=== PATIENT | female | born 1955 | race Hispanic/Latino ===

== ENCOUNTER 2018-05-12 00:45 | Emergency (ER) | payer MEDICAID, OTHER ==
[2018-05-12 01:01] VITALS: BMI 24.1
[2018-05-12 01:04] VITALS: BP 149/98; PULSE 94; RESP 18; TEMP 97.6; O2SAT 99
--- NOTE | 2018-05-12 02:07 | ED PDOC ---
HPI: Psych/Substance Abuse Time Seen by Provider: 05/12/18 01:02 Chief Complaint (Nursing): Alcohol Ingestion Chief Complaint (Provider): Alcohol Ingestion ED Caveat: Intoxicated History Per: Patient, EMS History/Exam Limitations: intoxication Modifying Factor(s): Alcohol Additional Complaint(s): 63 y/o female with history of hypertension brought in by EMS for alcohol intoxication. Patient is well known to provider for multiple visits to ED. Full HPI and ROS limited due to patient's intoxicated state. PMD: non provided Past Medical History Reviewed: Historical Data, Nursing Documentation, Vital Signs Vital Signs: Last Vital Signs Temp 97.6 F 05/12/18 01:01 Pulse 94 H 05/12/18 01:01 Resp 18 05/12/18 01:01 BP 149/98 H 05/12/18 01:01 Pulse Ox 99 05/12/18 01:01 - Medical History PMH: HTN - Family History Family History: States: Unknown Family Hx - Social History Alcohol: > 2 Drinks/Day - Immunization History Hx Tetanus Toxoid Vaccination: No Hx Influenza Vaccination: No Hx Pneumococcal Vaccination: No - Home Medications Home Medications: Ambulatory Orders Medication Instructions Recorded No Known Home Med 10/28/15 - Allergies Allergies/Adverse Reactions: Allergies Allergy/AdvReac Type Severity Reaction Status Date / Time No Known Allergies Allergy Verified 05/12/18 01:01 Review of Systems Review Of Systems: ROS cannot be obtained secondary to pt's inabilty to answer questions. Physical Exam - Reviewed Nursing Documentation Reviewed: Yes Vital Signs Reviewed: Yes - Physical Exam Appears: Positive for: No Acute Distress Head Exam: Positive for: ATRAUMATIC, NORMOCEPHALIC Skin: Positive for: Normal Color, Warm, Dry Eye Exam: Positive for: Normal appearance, EOMI, PERRL Neck: Positive for: Normal, Painless ROM, Supple Cardiovascular/Chest: Positive for: Regular Rate, Rhythm. Negative for: Murmur Respiratory: Positive for: Normal Breath Sounds. Negative for: Respiratory Distress Gastrointestinal/Abdominal: Positive for: Normal Exam, Soft. Negative for: Tenderness Back: Positive for: Normal Inspection. Negative for: L CVA Tenderness, R CVA Tenderness Extremity: Positive for: Normal ROM. Negative for: Pedal Edema, Deformity - ECG O2 Sat by Pulse Oximetry: 99 (RA) Pulse Ox Interpretation: Normal Medical Decision Making Medical Decision Making: Time: 128 Initial impression: 63 y/o female brought in for alcohol intoxication Initial plan: --Alcohol serum 0611 Upon reevaluation, patient is sober and stable for discharge. Diagnosis is alcohol intoxication. Scribe Attestation: Documented by Silke Taylor, acting as a scribe for Tomás Flannery MD. Provider Scribe Attestation: All medical record entries made by the Scribe were at my direction and personally dictated by me. I have reviewed the chart and agree that the record accurately reflects my personal performance of the history, physical exam, medical decision making, and the department course for this patient. I have also personally directed, reviewed, and agree with the discharge instructions and disposition. Disposition - Clinical Impression Clinical Impression: Alcohol abuse with intoxication - Patient ED Disposition Is Patient to be Admitted: No - Disposition Disposition: Routine/Home Disposition Time: 06:11 Condition: STABLE Instructions: Alcohol Use - When Is Drinking a Problem? Forms: [employer] (Latvian)
== END 2018-05-12 06:38 | disposition home or self-care (01) ==
LOC: H.ER 00:45
DX: F10.129 Alcohol abuse with intoxication, unspecified (principal); I10 Essential (primary) hypertension; Y90.8 Blood alcohol level of 240 mg/100 ml or more

== ENCOUNTER 2018-07-04 22:14 | Emergency (ER) | payer MEDICAID ==
[2018-07-04 22:14] VITALS: BMI 24.1
--- NOTE | 2018-07-04 22:59 | ED PDOC ---
HPI: Psych/Substance Abuse Time Seen by Provider: 07/04/18 22:26 Chief Complaint (Nursing): Alcohol Ingestion History Per: Patient, EMS Additional Complaint(s): As per EMS ambulance was called on patient as she was found outside sitting on bench. As per caller pt. was observed in the morning on the bench sleeping and later on in the evening pt. was still on the bench. EMS further reports that pt. had an empty large bottle of vodka adjacent to her. Pt. admits to drinking vodka today and offers no complaints at this time. Past Medical History Reviewed: Historical Data, Nursing Documentation, Vital Signs Vital Signs: Last Vital Signs Temp 98.1 F 07/04/18 22:27 Pulse 105 H 07/04/18 22:27 Resp 18 07/04/18 22:27 BP 158/98 H 07/04/18 22:27 Pulse Ox 99 07/04/18 22:27 - Medical History PMH: HTN - Surgical History Surgical History: No Surg Hx - Family History Family History: States: No Known Family Hx - Immunization History Hx Tetanus Toxoid Vaccination: No Hx Influenza Vaccination: No Hx Pneumococcal Vaccination: No - Home Medications Home Medications: Ambulatory Orders Medication Instructions Recorded No Known Home Med 10/28/15 - Allergies Allergies/Adverse Reactions: Allergies Allergy/AdvReac Type Severity Reaction Status Date / Time No Known Allergies Allergy Verified 07/04/18 22:27 Review of Systems ROS Statement: Except As Marked, All Systems Reviewed And Found Negative Physical Exam - Physical Exam Appears: Positive for: Well, Non-toxic, No Acute Distress Head Exam: Positive for: ATRAUMATIC, NORMAL INSPECTION, NORMOCEPHALIC Skin: Positive for: Normal Color, Warm. Negative for: Rash Eye Exam: Positive for: Normal appearance, PERRL Cardiovascular/Chest: Positive for: Regular Rate, Rhythm. Negative for: Tachycardia Respiratory: Positive for: Normal Breath Sounds. Negative for: Respiratory Distress Gastrointestinal/Abdominal: Positive for: Soft. Negative for: Tenderness Neurologic/Psych: Positive for: Alert, Oriented (x3), Other (Slurred speech, AOB). Negative for: Aphasia, Facial Droop - ECG O2 Sat by Pulse Oximetry: 99 - Progress ED Course And Treament: Labs ordered. Disposition - Clinical Impression Clinical Impression: Alcohol intoxication - Patient ED Disposition Is Patient to be Admitted: Transfer of Care (Signed out to Belle SPENCER pending labs and sobriety.) - Disposition Disposition Time: 00:00 Condition: FAIR
--- NOTE | 2018-07-04 23:56 | ED PDOC ---
- Laboratory Results Result Diagrams: 07/05/18 00:15 07/05/18 00:15 - ECG O2 Sat by Pulse Oximetry: 99 Medical Decision Making Medical Decision Making: Patient endorsed to me by KORI Conley pending clinical sobriety and blood work results. Serum ETOH: 270 @ 00:15 03:49am: re-evaluated, speaking in full sentences and coherently, states that she is having significant B/L foot pain that occurred overnight. Denies SI/HI. Exam shows diffuse calluses on B/L feet with white discoloration and mild erythema on B/L feet, no increased warmth or purulent drainage. Ibuprofen 600mg PO x 1 ordered. Patient referred to podiatry clinic as outpatient. Ambulating with steady gait and speaking coherently. Disposition - Clinical Impression Clinical Impression: Alcohol intoxication - POA Present On Arrival: None - Disposition Referrals: Podiatry Clinic [Outside] Oli Vasquez MD [Family Provider] - Disposition: Routine/Home Disposition Time: 05:31 Condition: STABLE Additional Instructions: F/u with podiatry for further evaluation of foot discomfort. Take Tylenol or Ibuprofen for pain. Prescriptions: Ibuprofen [Motrin Tab] 600 mg PO Q6 PRN 7 Days tab PRN Reason: Pain, Moderate (4-7) Instructions: Alcohol Abuse and Alcoholism (DC) Forms: [employer] (Kenyan) Print Language: YORUBA
[2018-07-05 00:51] LABS: BASO # 0.1 K/uL (0.0-0.2); BASO % 0.8 % (0.0-2.0); EOS # 0.1 K/uL (0.0-0.7); HEMOGLOBIN 14.3 g/dL (12.0-16.0); LYMPH # 3.2 K/uL (1.0-4.3); LYMPH % 47.8 % (20.0-40.0); MEAN CELL VOLUME 98.7 fl (81.0-99.0); MEAN CORPUSCULAR HEMOGLOBIN 33.1 pg (27.0-31.0); MEAN CORPUSCULAR HGB CONC 33.6 g/dL (33.0-37.0); MEAN PLATELET VOLUME 7.9 fl (7.2-11.7); MONO # 0.3 K/uL (0.0-0.8); MONO % 5.2 % (0.0-10.0); NEUT # 2.9 K/uL (1.8-7.0); NEUT % 44.2 % (50.0-75.0); NRBC % 0.1 % (0.0-0.0); RBC 4.32 Mil/uL (3.80-5.20); RED CELL DISTRIBUTION WIDTH 14.1 % (11.5-14.5); WHITE BLOOD COUNT 6.7 K/uL (4.8-10.8)
[2018-07-05 01:04] LABS: ALB/GLOB RATIO 1.2 (1.0-2.1); ALBUMIN 4.7 g/dL (3.5-5.0); ALT/SGPT 48 U/L (9-52); AST/SGOT 100 U/L (14-36); BLOOD UREA NITROGEN 15 mg/dl (7-17); GFR NON-AFRICAN AMERICAN > 60
[2018-07-05 06:27] VITALS: BP 149/93; PULSE 99; RESP 19; TEMP 98.3; O2SAT 97
== END 2018-07-05 06:00 | disposition home or self-care (01) ==
LOC: H.ER 22:14
DX: F10.129 Alcohol abuse with intoxication, unspecified (principal); I10 Essential (primary) hypertension

== ENCOUNTER 2018-10-04 01:00 | Emergency (ER) | payer MEDICAID ==
[2018-10-04 01:42] VITALS: BMI 23.6
[2018-10-04 01:44] VITALS: RESP 18; TEMP 98.3; O2SAT 98
[2018-10-04] MEDS ORDERED: Bacitracin/Neomycin/Polymyxin OPHT OINT OD STA (02:54)
--- NOTE | 2018-10-04 03:05 | ED PDOC ---
HPI: Eye Injury/Pain Time Seen by Provider: 10/04/18 01:40 Chief Complaint (Nursing): Eye Problem Chief Complaint (Provider): 3 days of right eye redness and drainage History Per: Patient History/Exam Limitations: no limitations Onset/Duration Of Symptoms: Days Current Symptoms Are (Timing): Still Present Quality: Dull Wears Contact Lens?: No Associated Symptoms: Pain, Discharge From Eye. denies: Decreased Vision Additional Complaint(s): PT reports mnild right eye discomfort and itchiness for 3 days, drainage x 2. No change in vision. Past Medical History Reviewed: Historical Data, Nursing Documentation, Vital Signs Vital Signs: Last Vital Signs Temp 98.3 F 10/04/18 01:41 Pulse 110 H 10/04/18 01:41 Resp 18 10/04/18 01:41 BP 167/93 H 10/04/18 01:41 Pulse Ox 98 10/04/18 01:41 Primary Care Provider: Procedure,Nonphys - Medical History PMH: HTN - Surgical History Surgical History: No Surg Hx - Family History Family History: States: Unknown Family Hx - Immunization History Hx Tetanus Toxoid Vaccination: No Hx Influenza Vaccination: No Hx Pneumococcal Vaccination: No - Home Medications Home Medications: Ambulatory Orders Medication Instructions Recorded Ibuprofen [Motrin Tab] 600 mg PO Q6 PRN 7 Days tab 07/05/18 Lisinopril [Prinivil] 10 mg PO DAILY #30 tablet 10/04/18 - Allergies Allergies/Adverse Reactions: Allergies Allergy/AdvReac Type Severity Reaction Status Date / Time No Known Allergies Allergy Verified 10/04/18 01:41 Review of Systems ROS Statement: Except As Marked, All Systems Reviewed And Found Negative Constitutional: Negative for: Fever, Chills Eyes: Positive for: Pain, Redness Physical Exam - Reviewed Nursing Documentation Reviewed: Yes Vital Signs Reviewed: Yes - Physical Exam Appears: Positive for: Well, Non-toxic, No Acute Distress Head Exam: Positive for: ATRAUMATIC, NORMAL INSPECTION, NORMOCEPHALIC Skin: Positive for: Normal Color, Warm, DRY Eye Exam: Positive for: EOMI, PERRL, Conjunctival injection, Other (Drainage ). Negative for: Normal appearance ENT: Positive for: Normal ENT Inspection Neck: Positive for: Normal, Painless ROM Respiratory: Negative for: Accessory Muscle Use, Respiratory Distress Gastrointestinal/Abdominal: Positive for: Normal Exam, Soft Back: Positive for: Normal Inspection Extremity: Positive for: Normal ROM Neurological/Psych: Positive for: Awake, Alert, Normal Tone - ECG O2 Sat by Pulse Oximetry: 98 Pulse Ox Interpretation: Normal Medical Decision Making Medical Decision Making: Culture of discharge sent to lab. PT given antibiotic ointment in ER. Disposition - Clinical Impression Clinical Impression: Conjunctivitis - Patient ED Disposition Is Patient to be Admitted: No Counseled Patient/Family Regarding: Diagnosis, Need For Followup - Disposition Disposition: Routine/Home Disposition Time: 02:57 Condition: GOOD Prescriptions: Lisinopril [Prinivil] 10 mg PO DAILY #30 tablet Instructions: Conjunctivitis ([place]) Forms: [employer] (Panamanian)
[2018-10-04 08:26] VITALS: BP 170/93; PULSE 92
== END 2018-10-04 03:10 | disposition home or self-care (01) ==
LOC: H.ER 01:00
DX: H10.9 Unspecified conjunctivitis (principal)